=== PATIENT | male | born 1995 | race African-American/Black ===

== ENCOUNTER 2017-11-01 09:50 | Emergency (ER) | payer OTHER ==
--- NOTE | 2017-11-01 09:57 | PDOC ---
History of Present Illness - General Chief Complaint: Respiratory Stated Complaint: COUGH & COLD SX, HEADACHE Time Seen by Provider: 11/01/17 09:56 History Source: Patient Exam Limitations: No Limitations - History of Present Illness Initial Comments: 22 yo M no significant PMH presents with 4 day history of fever, chills, cough, body aches. No known sick contacts. He has had poor appetite with dec PO intake , but has been taking fluids. Denies throat pain, ear pain. +Mild SOB. Past History - Past Medical History Allergies/Adverse Reactions: Allergies Allergy/AdvReac Type Severity Reaction Status Date / Time No Known Allergies Allergy Verified 11/01/17 09:51 Home Medications: Ambulatory Orders Dayquil PO ASDIR 11/01/17 Guaifenesin Dm [Robitussin Dm -] 10 ml PO ASDIR PRN 11/01/17 Nyquil PO ASDIR 11/01/17 Review of Systems - Review of Systems Able to Perform ROS?: Yes Comments:: GENERAL/CONSTITUTIONAL: +Fever and chills. No weakness. HEAD, EYES, EARS, NOSE AND THROAT: No change in vision. No ear pain or discharge. No sore throat. CARDIOVASCULAR: No chest pain. +Mild shortness of breath. RESPIRATORY: +Cough. No wheezing or hemoptysis. GASTROINTESTINAL: No nausea, vomiting, diarrhea or constipation. GENITOURINARY: No dysuria, frequency, or change in urination. MUSCULOSKELETAL: No joint or muscle swelling or pain. No neck or back pain. SKIN: No rash NEUROLOGIC: No headache, vertigo, loss of consciousness, or change in strength/ sensation. ENDOCRINE: No increased thirst. No abnormal weight change. HEMATOLOGIC/LYMPHATIC: No anemia, easy bleeding, or history of blood clots. ALLERGIC/IMMUNOLOGIC: No hives or skin allergy. *Physical Exam - Physical Exam Comments: GENERAL: Awake, alert, and fully oriented, in no acute distress. Nontoxic. HEAD: No signs of trauma EYES: PERRLA, EOMI, sclera anicteric, conjunctiva clear ENT: Auricles normal inspection, hearing grossly normal, nares patent, oropharynx clear without exudates. Dry mucosa. TMs normal B/L. +Clear rhinorrhea. NECK: Normal ROM, supple, no lymphadenopathy, JVD, or masses LUNGS: Breath sounds equal, clear to auscultation bilaterally. No wheezes, and no crackles HEART: Regular rate and rhythm, normal S1 and S2, no murmurs, rubs or gallops ABDOMEN: Soft, nontender, normoactive bowel sounds. No guarding, no rebound. No masses EXTREMITIES: Normal range of motion, no edema. No clubbing or cyanosis. No cords, erythema, or tenderness NEUROLOGICAL: Cranial nerves II through XII grossly intact. Normal speech, normal gait SKIN: Warm, Dry, normal turgor, no rashes or lesions noted. Medical Decision Making - Medical Decision Making 11/01/17 10:12 Suspect influenza. As it is out of the window for Tamiflu, treatment is supportive at this time. Will give neb and motrin in ED. Counseled patient to avoid public places without wearing a mask, as flu is extremely contagious. *DC/Admit/Observation/Transfer Diagnosis at time of Disposition: Influenza - Discharge Dispostion Disposition: HOME Condition at time of disposition: Stable Admit: No - Referrals - Patient Instructions - Post Discharge Activity
[2017-11-01 09:58] VITALS: BMI 24.3
[2017-11-01] MEDS ORDERED: IBUPROFEN 600 MG TABLET (FP) PO ONE (10:04)
[2017-11-01] MEDS ORDERED: ALBUTEROL SO4 0.083% IH SOL 2.5 MG/3 ML VIAL.NEB. NEB ONE (10:05)
[2017-11-01 11:19] VITALS: BP 119/70; PULSE 69; TEMP 99
== END 2017-11-01 11:20 | disposition home or self-care (01) ==
LOC: FER 09:50
PROC: 3E0F7GC Introduction of Other Therapeutic Substance into Respiratory Tract, Via Natural or Artificial Opening (ICD-10-PCS; principal; 2017-11-01)
DX: J11.1 Influenza due to unidentified influenza virus with other respiratory manifestations (principal)
CPT/HCPCS: 71046-TC-FY; 99282-25